=== PATIENT | male | born 1980 | race Caucasian/White ===

== ENCOUNTER 2018-02-04 17:40 | Emergency (ER) | payer MEDICAID ==
[~2018-02-04] VITALS: Ht 185.4 cm; Wt 91.2 kg
[2018-02-04 17:43] VITALS: BP 158/85
== END 2018-02-04 19:03 | disposition home or self-care (01) ==
LOC: ED 18:00
DX: M67.471 Ganglion, right ankle and foot (principal)
CPT/HCPCS: 99281

== ENCOUNTER 2018-10-02 14:12 | Emergency (ER) | payer MEDICAID ==
[~2018-10-02] VITALS: Ht 185.4 cm; Wt 81.1 kg
[2018-10-02] MEDS ORDERED: IBUPROFEN (14:55)
[2018-10-02] MEDS ORDERED: KETOROLAC 30 MG/1 ML IM ONE (15:30)
[2018-10-02] MEDS ORDERED: DIPHENHYDRAMINE 25 MG CAPSULE PO ONE (15:30)
[2018-10-02] MEDS ORDERED: PROMETHAZINE 25 MG/ML, 1ML IM ONE (15:30)
[2018-10-02] MEDS ORDERED: PROMETHAZINE 25 MG/ML, 1ML ONE ×2 (15:45→15:53)
[2018-10-02] MEDS ORDERED: DIPHENHYDRAMINE 25 MG CAPSULE ONE (15:45)
[2018-10-02] MEDS ORDERED: KETOROLAC 30 MG/1 ML ONE (15:45)
[2018-10-02 16:31] VITALS: BP 121/71
== END 2018-10-02 16:33 | disposition home or self-care (01) ==
LOC: ED 15:58
DX: G44.029 Chronic cluster headache, not intractable (principal); M54.2 Cervicalgia; M25.511 Pain in right shoulder
CPT/HCPCS: 72125; 96372; 99284; J1885; J2550; Q0163